=== PATIENT | male | born 1955 | race Caucasian/White ===

== ENCOUNTER 2021-05-08 13:11 | Outpatient (CLI) | payer MEDICARE, MEDICAID ==
[~2021-05-08 13:11] MED LIST: DIAZ5TAB4 PO; HYDR-3653 PO; LORA-445 PO; LOSA50TA14 PO; METH-640 PO; OXYC1TAB18 PO; SENN-177 PO
== END 2021-05-08 23:59 | disposition home or self-care (01) ==
LOC: CVU 13:11
PROVIDERS: ATTEND Internal Medicine Cardiovascular Disease
DX: I08.2 Rheumatic disorders of both aortic and tricuspid valves (principal); I10 Essential (primary) hypertension; R42 Dizziness and giddiness
CPT/HCPCS: 93306; 93356